=== PATIENT | male | born 1935 | race Asian ===

== ENCOUNTER 2020-07-30 10:17 | Emergency (ER) | payer OTHER ==
[~2020-07-30] VITALS: Ht 177.8 cm; Wt 78.8 kg
[2020-07-30 10:21] VITALS: BP 100/49
--- NOTE | 2020-07-30 10:39 | NUR ---
PT brought back from triage for insulin refill. No complaints at this time.
[2020-07-30] MEDS ORDERED: INSULIN REGULAR 100 UNITS/ML, 3ML VIAL SQ-INSULIN ONE ×2 (11:00→12:00)
[2020-07-30] MEDS ORDERED: INSULIN SINGLE DOSE, ER ONE ×2 (11:08→11:54)
--- NOTE | 2020-07-30 11:59 | NUR ---
Medicated as ordered, discussed POC with PT.
--- NOTE | 2020-07-30 12:57 | NUR ---
dc instructions reviewed
== END 2020-07-30 13:00 | disposition home or self-care (01) ==
LOC: ED 12:53
DX: E10.65 Type 1 diabetes mellitus with hyperglycemia (principal); Z76.0 Encounter for issue of repeat prescription; I10 Essential (primary) hypertension
CPT/HCPCS: 82962; 99282; J1815